=== PATIENT | male | born 1960 | race Caucasian/White ===

== ENCOUNTER → 2023-01-07 | Outpatient (CLI) | payer OTHER ==
[~2023-01-07] MED LIST: BREO1INH INH; HYDR-3363 PO; HYDR0.2C21 TOP; IBUP-1764 PO; KETO2CR TOP; TRIA1OI TOP
[2023-01-07 19:36] LABS: BASO # 0.1 10^3/uL (0.0-0.2); BASO % 1.7 % (0.0-1.0); EOS # 0.2 10^3/uL (0.0-0.5); EOS % 4.2 % (0.0-3.0); HEMATOCRIT 48.1 % (42.0-52.0); LYMPH # 1.4 10^3/uL (1.5-5.0); MEAN CORPUSCULAR HEMOGLOBIN 29.9 pg (27.0-33.0); MEAN CORPUSCULAR HGB CONC 33.3 g/dl (32.0-36.5); MEAN CORPUSCULAR VOLUME 89.9 fl (80.0-96.0); MONO # 0.5 10^3/uL (0.0-0.8); MONO % 8.9 % (2.0-8.0); NEUTROPHILS # 3.5 10^3/uL (1.5-8.5); PLATELET COUNT, AUTOMATED 292 10^3/uL (150-450); RED BLOOD COUNT 5.35 10^6/uL (4.30-6.10); WHITE BLOOD COUNT 5.7 10^3/uL (4.0-10.0)
[2023-01-07 19:39] LABS: ALBUMIN 3.9 G/DL (3.2-5.2); ALKALINE PHOSPHATASE 66 U/L (46-116); ALT/SGPT 44 U/L (7.0-40); AST/SGOT 34 U/L (<34); BILIRUBIN,TOTAL 0.5 MG/DL (0.3-1.2); BLOOD UREA NITROGEN 15 MG/DL (9-23); CALCIUM LEVEL 8.7 MG/DL (8.3-10.6); CARBON DIOXIDE LEVEL 30 MMOL/L (20-31); CHLORIDE LEVEL 103 MMOL/L (98-107); CREATININE FOR GFR 1.04 MG/DL (0.70-1.30); GLOMERULAR FILTRATION RATE > 60.0 (>49); GLUCOSE, FASTING 91 MG/DL (74-106); POTASSIUM SERUM 4.2 MMOL/L (3.5-5.1); SODIUM LEVEL 138 MMOL/L (136-145)
[2023-01-12 14:12] LABS: ANA (HEP2) Negative (.); ANTINUCLEAR ANTIBODIES DIRECT Negative (Negative); BABESIOSIS LEVEL IGG <1:10 (Neg:<1:10); BABESIOSIS LEVEL IGM <1:10 (Neg:<1:10); E CHAFFEENSIS IgG TITER Negative (Neg:<1:64); E CHAFFEENSIS IgM TITER Negative (Neg:<1:20); HUMAN GRANULCYTIC EHRLIC IgG Negative (Neg:<1:64); HUMAN GRANULCYTIC EHRLIC IgM Negative (Neg:<1:20)
== END ==
LOC: M WUC 15:29
PROVIDERS: ATTEND Nurse Practitioner Adult Health
DX: L30.8 Other specified dermatitis (principal)

== ENCOUNTER 2023-01-15 18:13 | Observation (INO) | payer OTHER ==
[~2023-01-15] VITALS: Ht 188 cm; Wt 91.8 kg
[2023-01-15 19:04] LABS: BASO # 0.1 10^3/uL (0.0-0.2); BASO % 1.6 % (0.0-1.0); EOS # 0.4 10^3/uL (0.0-0.5); EOS % 5.7 % (0.0-3.0); HEMATOCRIT 47.5 % (42.0-52.0); HEMOGLOBIN 16.1 g/dl (13.5-17.5); LYMPH # 1.3 10^3/uL (1.5-5.0); LYMPH % 18.8 % (24.0-44.0); MEAN CORPUSCULAR HGB CONC 33.9 g/dl (32.0-36.5); MEAN CORPUSCULAR VOLUME 88.5 fl (80.0-96.0); MONO # 0.6 10^3/uL (0.0-0.8); MONO % 8.4 % (2.0-8.0); NEUTROPHILS # 4.4 10^3/uL (1.5-8.5); NEUTROPHILS % 65.2 % (36.0-66.0); PLATELET COUNT, AUTOMATED 277 10^3/uL (150-450); RED BLOOD COUNT 5.37 10^6/uL (4.30-6.10); WHITE BLOOD COUNT 6.8 10^3/uL (4.0-10.0)
[2023-01-15] MEDS ORDERED: ISOVUE-370 76% 100ML VIAL As Ordered ONE (19:14)
[2023-01-15 19:27] LABS: INR 0.91; PROTHROMBIN TIME 12.4 SECONDS (12.5-14.5)
[2023-01-15 19:28] LABS: PARTIAL THROMBOPLASTIN TIME 26.4 SECONDS (24.8-34.2)
[2023-01-15 19:29] LABS: BLOOD UREA NITROGEN 18 MG/DL (9-23); CALCIUM LEVEL 8.7 MG/DL (8.3-10.6); CARBON DIOXIDE LEVEL 29 MMOL/L (20-31); CHLORIDE LEVEL 103 MMOL/L (98-107); CK-MB VALUE MASS 3.6 NG/ML (<3.6); CPK CREATINE PHOSPHOKINASE 259 U/L (46-171); CREATININE FOR GFR 0.94 MG/DL (0.70-1.30); GLOMERULAR FILTRATION RATE > 60.0 (>49); GLUCOSE, FASTING 98 MG/DL (74-106); MB/CK RELATIVE INDEX 1.38 (< OR =4); POTASSIUM SERUM 4.3 MMOL/L (3.5-5.1); SODIUM LEVEL 139 MMOL/L (136-145)
[2023-01-15 19:44] LABS: RSV AMPLIFICATION NEGATIVE (NEGATIVE)
[2023-01-15] MEDS ORDERED: TRIA1OI TOP (22:01)
[2023-01-15] MEDS ORDERED: HYDR0.2C21 TOP (22:01)
[2023-01-15] MEDS ORDERED: IBUP-1764 PO (22:01)
[2023-01-15] MEDS ORDERED: BREO1INH INH (22:01)
[2023-01-15] MEDS ORDERED: KETO2CR TOP (22:01)
[2023-01-15] MEDS ORDERED: HYDR-3363 PO (22:01)
[2023-01-15] MEDS ORDERED: HOME MED LIST COMPLETE! XX SCH (22:05)
[2023-01-16] MEDS ORDERED: ALBUTEROL 90 MCG/ACT 8GM HFA INHALER INH PRN (01:30)
[2023-01-16] MEDS: predniSONE 20 MG TAB PO SCH ×2 (02:19→09:58)
[2023-01-16] MEDS: valACYclovir HCL 500 MG TAB PO SCH ×2 (02:19→09:58)
[2023-01-16] MEDS ORDERED: VALA500T5 PO (07:05)
[2023-01-16] MEDS ORDERED: PRED20TA PO (07:05)
[2023-01-16 10:09] VITALS: BP 120/68
== END 2023-01-16 10:30 | disposition home or self-care (01) ==
LOC: M ED 18:13 → M ED INP 21:24
PROVIDERS: ADMIT Internal Medicine; ATTEND Internal Medicine
DX: G51.0 Bell's palsy (principal); L40.8 Other psoriasis; J45.909 Unspecified asthma, uncomplicated; G47.00 Insomnia, unspecified; Z79.52 Long term (current) use of systemic steroids; Z79.899 Other long term (current) drug therapy
CPT/HCPCS: 36415; 70450; 70496; 70498; 70551; 71045; 80047; 80048; 82550; 82553; 84484; 85025; 85610; 85652; 85730; 86618; 87631; 93005; 93041; 94760; 99285; J7512; Q9967